=== PATIENT | male | born 1965 | race Caucasian/White ===

== ENCOUNTER 2018-06-22 07:23 | Day surgery (SDC) | payer OTHER ==
[2018-06-19 12:03] VITALS: BMI 33.3
--- NOTE | 2018-06-22 07:11 | OP ---
Operative Note - Note: Operative Date: 06/22/18 Pre-Operative Diagnosis: Left olecranon bursitis Operation: Left olecranon burscectomy Post-Operative Diagnosis: Same as Pre-op Surgeon: Robert Villeda Supervisor Mail Carriers: Edwige Lozada Anesthesiologist/UNIT OPERATOR: Joe Castillo Anesthesia: General Specimens Removed: Left olecranon bursa Operative Report Dictated: Yes
[2018-06-22] MEDS ORDERED: LIDOCAINE HCL/PF 2% SDV 5ML VIAL ONE (08:10)
[2018-06-22] MEDS ORDERED: ONDANSETRON 4 MG/2 ML VIAL ONE ×2 (08:10→10:02)
[2018-06-22] MEDS ORDERED: SODIUM CHLORIDE 0.9% P/F 10 ML VIAL IJ ONE (08:10)
[2018-06-22] MEDS ORDERED: ceFAZolin SODIUM 1 GM VIAL ONE (08:10)
[2018-06-22] MEDS ORDERED: DEXAMETHASONE SOD PHOSPHATE 4 MG/1 ML VIAL ONE ×2 (08:10→10:02)
[2018-06-22] MEDS ORDERED: MIDAZOLAM HCL 2 MG/2 ML SINGLE DOSE VIAL ONE (08:52)
[2018-06-22] MEDS ORDERED: BUPIVACAINE HCL/PF 2.5 MG/ML - 30 ML VIAL IJ ONE (10:03)
[2018-06-22] MEDS ORDERED: TRANEXAMIC ACID 1000 MG/10 ML VIAL ONE (10:51)
[2018-06-22] MEDS ORDERED: ONDANSETRON 4 MG/2 ML VIAL IVPUSH PRN (11:08)
[2018-06-22] MEDS ORDERED: oxyCODONE HCL 5 MG TABLET PO PRN ×2 (11:08)
[2018-06-22] MEDS ORDERED: LACTATED RINGERS SOLUTION 1,000 ML IV SCH (11:15)
--- NOTE | 2018-06-22 11:57 | OP ---
DATE OF OPERATION: DATE OF DICTATION: 06/22/2018 PREOPERATIVE DIAGNOSES: Left olecranon bursitis, triceps enthesopathy. POSTOPERATIVE DIAGNOSES: Left olecranon bursitis, triceps enthesopathy. PROCEDURE: Left elbow excision of olecranon bursa and debridement of triceps insertion. SURGEON: Robert Altamirano MD SENIOR LEAD DEVELOPER: YOEL Becker, whose skillful assistance was necessary for the safe and timely performance of this procedure. Ms. Lozada was able to help provide limb positioning, retraction, as well as assist in the dissecting portion of the case. ANESTHESIA: General. POSTOPERATIVE CONDITION: Stable. COMPLICATIONS: None. INDICATIONS: This is a 53-year-old gentleman who had been experiencing persistent discomfort and swelling from olecranon bursitis. Despite conservative measures, he did not improve. Treatment options were reviewed including nonoperative versus operative care. Operative risks were reviewed in detail including bleeding, infection, neurovascular injury, need for further surgery, postoperative stiffness, recurrence or persistence of bursitis, skin necrosis. We discussed medical risks such as heart attack, stroke, DVT, PE and . I addressed all the patient's questions and concerns. He voiced understanding and elected to proceed. PROCEDURE: The patient was brought to the operating room where general anesthesia was administered. He was placed into a "lazy lateral" position approximately [address] a full lateral decubitus position. The left upper extremity was then prepped and draped in the usual sterile fashion. A preoperative dose of antibiotics was given and the usual timeout procedure was performed. The incision was now planned out in curvilinear fashion over the olecranon, maintaining care to avoid making the incision directly over the olecranon tip. The incision was now carried down through skin, through subcutaneous tissue. Blunt spreading was used to expose the bursal sac. Utilizing scissor dissection, dissection was carried out laterally first dissecting all the way to the level of the ulna. Attention was then turned medially and here the bursal sac was ruptured. The sac was now carefully excised, maintaining a thick layer of subcutaneous tissue over the skin and avoiding any penetration towards the medial aspect and the ulnar groove. After excising the bursa, the periosteum was elevated off of the distal ulna which was prominent and thickened. There was bony prominence here and therefore utilizing the bur as well as a rongeur this was smoothed down to a stable base. Some of the triceps had been elevated both medially and laterally in order to gain adequate exposure for this and after smoothing the bone this was closed with a [id number] suture of 2-0 Vicryl. The subcutaneous tissue was now loosely approximated to the fascia utilizing 2-0 Vicryl. Given that there was excess skin present, a 2-mm area of skin was trimmed off of the medial portion of the wound. Vicryl 2-0 was then used to perform subcutaneous approximation. The skin was closed using a running 4-0 nylon suture. Sterile dressings were placed. Patient was placed into a long-arm splint. He was extubated and transferred to the recovery room in stable condition. It should be noted that 5 mL of 0.25% Marcaine were injected about the wound prior to placing the dressings. ROBERT ALTAMIRANO M.D. STEVE/[id number]
[2018-06-22 12:13] VITALS: TEMP 97.9
[2018-06-22 12:47] VITALS: BP 144/94; PULSE 65
--- NOTE | 2018-06-23 17:24 | PATH ---
Surgical Pathology Report Patient Name: LARRY COLLADO [facility]. Rec. #: [id number] /Age/Gender: 1965 (Age: 53) / M Account: [id number] Location: [facility] Taken: 06/22/2018 Received: 06/22/2018 Reported: 06/23/2018 Physicians: Robert Villeda M.D. Specimen(s) Received LEFT ELBOW OLECRANON BURSA Clinical History Left elbow olecranon bursa Final Diagnosis LEFT OLECRANON BURSA, EXCISION: BURSAL WALL SHOWING FIBROSIS, FIBRINOUS EXUDATE, GRANULATION TISSUE FORMATION WITH INCREASED VASCULARITY, CONSISTENT WITH CHRONIC BURSITIS. Electronically Signed Soila Ruiz M.D. Gross Description Received in formalin labeled "left olecranon bursa," is a 5.0 x 4.0 x 2.8 cm rodríguez-red portion of soft tissue, consistent with bursa tissue. Ground Source Heat Pump Technician sections are submitted in one cassette. /06/22/2018 [facility]06/22/2018
== END 2018-06-22 12:50 | disposition home or self-care (01) ==
LOC: FASU 07:23
PROVIDERS: ATTEND Orthopaedic Surgery Sports Medicine
PROC: 0MB40ZZ Excision of Left Elbow Bursa and Ligament, Open Approach (ICD-10-PCS; principal; 2018-06-22 09:48)
DX: M70.22 Olecranon bursitis, left elbow (principal); M77.8 Other enthesopathies, not elsewhere classified
CPT/HCPCS: 88304-TC; 94760

== ENCOUNTER 2018-08-10 11:56 | Day surgery (SDC) | payer OTHER ==
[2018-08-08 11:51] VITALS: BMI 32.1
--- NOTE | 2018-08-10 12:40 | OP ---
Operative Note - Note: Operative Date: 08/10/18 Pre-Operative Diagnosis: Left elbow bursitis Operation: Left elbow revision bursectomy Post-Operative Diagnosis: Same as Pre-op Surgeon: Robert Villeda Plant Senior Manager: Edwige Lozada Anesthesia: General Operative Report Dictated: Yes
[2018-08-10] MEDS ORDERED: MIDAZOLAM HCL 2 MG/2 ML SINGLE DOSE VIAL ONE (14:17)
[2018-08-10] MEDS ORDERED: PROPOFOL 20 ML ONE ×3 (14:23)
[2018-08-10] MEDS ORDERED: TRANEXAMIC ACID 1000 MG/10 ML VIAL ONE ×2 (14:36→15:02)
[2018-08-10] MEDS ORDERED: LIDOCAINE 1%/EPI 1:100000 (20 ML MULTI DOSE VIAL) ONE (14:38)
[2018-08-10] MEDS ORDERED: ceFAZolin SODIUM 1 GM VIAL ONE (14:59)
[2018-08-10] MEDS ORDERED: LIDOCAINE 1%/EPI 1:100000 (20 ML MULTI DOSE VIAL) IJ ONE (15:07)
[2018-08-10] MEDS ORDERED: TRANEXAMIC ACID 1000 MG/10 ML VIAL IVPB ONE (15:07)
[2018-08-10] MEDS ORDERED: ONDANSETRON 4 MG/2 ML VIAL IVPUSH PRN (16:02)
[2018-08-10] MEDS ORDERED: oxyCODONE HCL 5 MG TABLET PO PRN ×2 (16:02→16:38)
[2018-08-10] MEDS ORDERED: LACTATED RINGERS SOLUTION 1,000 ML IV SCH (16:15)
[2018-08-10] MEDS ORDERED: ACETAMINOPHEN 325 MG TABLET (FP) PO PRN (16:38)
[2018-08-10] MEDS: CEFAZOLIN 1 GM/D5W 1 GM/50 ML BAG IVPB SCH (18:30)
[2018-08-11] MEDS: CEFAZOLIN 1 GM/D5W 1 GM/50 ML BAG IVPB SCH ×2 (01:10→07:09)
[2018-08-11 06:24] VITALS: BP 133/83; PULSE 64; TEMP 97.6
--- NOTE | 2018-08-11 09:32 | PN ---
Progress Note (short form) - Note Progress Note: 53 yo male was evaluated s/p revision of left olecranon bursectomy on 08/10. Patient sitting comfortably in chair at bedside. Drain and splint in place. Patient states the drain has been emptied twice since his admission, about 50 cc total. No complaints of pain at this time. Last Vital Signs Temp Pulse Resp BP Pulse Ox 97.6 F 64 19 133/83 96 08/11/18 06:22 08/11/18 06:22 08/11/18 06:22 08/11/18 06:22 08/11/18 06:22 PE: Left UE Dressing clean dry and intact Drain in place - about 25cc filled at time of evaluation Neurovascularly intact distally Cap refill intact A: s/p revision of left olecranon bursectomy P: Drain removed -total drain out-put during admission of about 75 cc Dressing and splint re-applied Preparing for discharge home Has appointment to f/u as outpatient
--- NOTE | 2018-08-18 19:01 | PATH ---
Surgical Pathology Report Patient Name: LARRY COLLADO Med. Rec. #: [id number] /Age/Gender: 1965 (Age: 53) / M Account: [id number] Location: [facility] Taken: 08/10/2018 Received: 08/10/2018 Reported: 08/18/2018 Physicians: Robert Villeda M.D. Specimen(s) Received BURSAL TISSUE Clinical History Olecranon bursitis Final Diagnosis BURSAL TISSUE, ELBOW, LEFT, REVISION BURSECTOMY: FIBROUS TISSUE WITH MODERATE ACUTE AND CHRONIC INFLAMMATION, FIBRINOID NECROSIS, AND FOCAL HISTIOCYTIC INFILTRATE. Comment: Immunohistochemical stain performed at [place], [place] ([id number]) and interpreted at [facility] show CD68 highlights focal histiocytic infiltrate. Electronically Signed Kandis Rader M.D. Gross Description Received in formalin, labeled "bursal tissue" it's a piece of rodríguez, irregular soft tissue measuring 3.0 x 2.0 x 0.5 cm. The specimen is serially sectioned and entirely submitted in one cassette. THOMAS/08/14/2018 avila/08/14/2018
--- NOTE | 2018-08-22 13:01 | OP ---
DATE OF OPERATION: 08/10/2018 PREOPERATIVE DIAGNOSIS: Left elbow recurrent bursitis, persistent wound drainage. POSTOPERATIVE DIAGNOSIS: Left elbow recurrent bursitis, persistent wound drainage. PROCEDURE: Revision, left elbow bursectomy. SURGEON: Robert Villeda MD HOME CARE ASSOCIATE: Edwige Lozada, physician magistrate assistant, whose skillful assistance facilitated the safe and timely performance of this procedure. Ms. Lozada was able to provide limb positioning, retraction, as well as assist in the bursal excision. ANESTHESIA: Local plus sedation. POSTOPERATIVE CONDITION: Stable. COMPLICATIONS: None. INDICATIONS: This is a gentleman who had been experiencing persistent swelling as well as wound discharge following olecranon bursectomy. Given his failure to improve, he was indicated for revision bursectomy. Treatment options including nonoperative care with recurrent aspiration or observation were discussed. Discussed medical risks such as heart attack, stroke, DVT, PE, and . We discussed the risk of recurrent bursitis even after a revision procedure. I addressed all the patient's questions and concerns. He voiced understanding and elected to proceed. DESCRIPTION OF PROCEDURE: The patient was brought to the operating room where he was placed into a lazy lateral-type position. Care was taken to pad all the bony prominences. The left upper extremity was then prepped and draped in the usual sterile fashion. He had a preop dose of antibiotics was given preoperative dose of antibiotics was held pending culture, and the usual timeout procedure was performed. The area about the wound was then anesthetized using subcutaneous lidocaine. The wound was then incised. Electrocautery was used to maintain hemostasis. The bursal pocket was now entered and some clear yellow fluid was drained. There were fibrous tissue nodules noted within the bursal space. These were debrided. Utilizing a curet as well as rongeur, any lining that had formed in the bursal space was debrided down to healthy tissue. The patient was given a dose of TXA to help limit any bleeding during the procedure. The wound was then copiously irrigated. After examining and finding no more evidence of any active bleeding, the skin edges of the previous wound about the drainage area were debrided sharply. Deep tissue was approximating using 2-0 Vicryl. The skin was closed using 3-0 nylon. Prior to closure, small lateral stab incision had been made and a LILLIAM drain had been inserted. The drain was placed to suction. Patient was admitted for 23 hours with the plan for the drain to be removed the following morning. Leslie KNIGHT/[id number]
== END 2018-08-11 09:26 | disposition home or self-care (01) ==
LOC: FASUSAT 11:56 → FM/S 17:04 → FASUSAT 08-11 09:26
PROVIDERS: ATTEND Orthopaedic Surgery Sports Medicine
PROC: 0MB40ZZ Excision of Left Elbow Bursa and Ligament, Open Approach (ICD-10-PCS; principal; 2018-08-10 14:46)
DX: M70.22 Olecranon bursitis, left elbow (principal)
CPT/HCPCS: 87070; 87205; 88304-TC; 94760